=== PATIENT | female | born 1940 ===

== ENCOUNTER 2017-11-04 05:35 | Day surgery (SDC) | payer MEDICARE, MEDICAID ==
[2017-11-04] MEDS ORDERED: IV LACTATED RINGERS SOLUTION 1,000 ML BAG IV ONE (05:36)
[2017-11-04] MEDS ORDERED: EPHEDRINE SULFATE 50 MG/ML AMPUL MC ONE (05:36)
[2017-11-04] MEDS ORDERED: PROPOFOL 200 MG/20 ML BOTTLE IV ONE (05:36)
[2017-11-04] MEDS ORDERED: LIDOCAINE HCL 1% 20 ML VIAL MC ONE (05:36)
[2017-11-04 06:47] LABS: BASOPHILS % (AUTO) 0.6 % (0.0-2.0); EOSINOPHILS % (AUTO) 0.6 % (0.0-7.0); HEMATOCRIT 40.4 % (31.2-41.9); HEMOGLOBIN 13.6 g/dL (10.9-14.3); LYMPHOCYTES # (AUTO) 1.7 K/uL (20.0-40.0); MEAN CORPUSCULAR HEMOGLOBIN 28.2 uug (24.7-32.8); MEAN CORPUSCULAR HGB CONC 34 g/dL (32.3-35.6); MEAN CORPUSCULAR VOLUME 83.7 fL (75.5-95.3); MONOCYTES # (AUTO) 0.8 K/uL (2.0-10.0); MONOCYTES % (AUTO) 12.2 % (0.0-11.0); NEUTROPHILS # (AUTO) 3.8 K/uL (1.8-8.9); NEUTROPHILS % (AUTO) 59.6 % (38.5-71.5); PLATELET COUNT (AUTO) 228 K/uL (179-408); RED BLOOD CELL COUNT(AUTO) 4.83 MIL/uL (3.63-4.92); WHITE BLOOD COUNT (AUTO) 6.3 K/uL (3.8-11.8)
[2017-11-04 07:02] LABS: CARBON DIOXIDE 26 mmol/L (21-32); CHLORIDE 102 mmol/L (98-107); GLUCOSE 105 mg/dL (74-106); UREA NITROGEN, BLOOD 10 mg/dL (7-18)
[2017-11-04 07:05] LABS: *BLOOD, URINE 3+ (NEGATIVE); *CLARITY,URINE SLIGHTLY CLOUDY (CLEAR); *COLOR,URINE YELLOW (YELLOW); *KETONES,URINE TRACE (NEGATIVE); *PROTEIN,URINE 1+ (NEGATIVE); *UROBILINOGEN,URINE 0.2 E.U./dl (NORMAL); LEUKOCYTE ESTERASE ,URINE TRACE (NEGATIVE); NITRITE, URINE NEGATIVE (NEGATIVE); UGLUCOSE NEGATIVE (NEGATIVE)
[2017-11-04 07:15] LABS: *BILIRUBIN,URIN 1+ (NEGATIVE)
[2017-11-04 07:16] LABS: BACTERIA,URINE NONE SEEN /HPF (NONE SEEN); RBC,URINE 20-50 /HPF (0-3); SQUAMOUS EPITHELIAL CELL,UR FEW /HPF (NONE SEEN)
[2017-11-04 07:17] LABS: MUCUS,URINE MODERATE /LPF (0-FEW); URINE AMORPHOUS PHOSPHATES FEW /HPF
== END 2017-11-04 09:58 | disposition home or self-care (01) ==
LOC: DS 05:35
PROVIDERS: ATTEND Surgery
DX: D12.0 Benign neoplasm of cecum (principal); K22.2 Esophageal obstruction; K57.30 Diverticulosis of large intestine without perforation or abscess without bleeding; K44.9 Diaphragmatic hernia without obstruction or gangrene; K64.8 Other hemorrhoids; I11.9 Hypertensive heart disease without heart failure; Z98.890 Other specified postprocedural states; R63.4 Abnormal weight loss; K43.2 Incisional hernia without obstruction or gangrene; Z95.1 Presence of aortocoronary bypass graft; I25.10 Atherosclerotic heart disease of native coronary artery without angina pectoris; I10 Essential (primary) hypertension
CPT/HCPCS: 36415; 43235; 71010; 85025; 85730; A4217; A4663; J3490; J7120

== ENCOUNTER 2017-11-30 08:45 | Inpatient (IN) | payer MEDICARE, MEDICAID ==
[~2017-11-30] VITALS: Ht 127 cm; Wt 48.5 kg
[2017-11-30 09:47] LABS: BASOPHILS % (AUTO) 0.3 % (0.0-2.0); EOSINOPHILS # (AUTO) 0.1 K/uL (0.0-0.7); EOSINOPHILS % (AUTO) 1.2 % (0.0-7.0); HEMATOCRIT 39.4 % (31.2-41.9); HEMOGLOBIN 13.3 g/dL (10.9-14.3); LYMPHOCYTES # (AUTO) 1.7 K/uL (20.0-40.0); LYMPHOCYTES % (AUTO) 26.5 % (20.5-51.5); MEAN CORPUSCULAR HEMOGLOBIN 28.4 uug (24.7-32.8); MEAN CORPUSCULAR HGB CONC 34 g/dL (32.3-35.6); MEAN CORPUSCULAR VOLUME 84.3 fL (75.5-95.3); MONOCYTES # (AUTO) 0.6 K/uL (2.0-10.0); MONOCYTES % (AUTO) 9.7 % (0.0-11.0); NEUTROPHILS % (AUTO) 62.3 % (38.5-71.5); PLATELET COUNT (AUTO) 242 K/uL (179-408); RED BLOOD CELL COUNT(AUTO) 4.67 MIL/uL (3.63-4.92); WHITE BLOOD COUNT (AUTO) 6.3 K/uL (3.8-11.8)
[2017-11-30 09:47] LABS: *BILIRUBIN,URIN NEGATIVE (NEGATIVE); *BLOOD, URINE Trace-lysed (NEGATIVE); *CLARITY,URINE CLEAR (CLEAR); *COLOR,URINE YELLOW (YELLOW); *KETONES,URINE NEGATIVE (NEGATIVE); *PROTEIN,URINE NEGATIVE (NEGATIVE); *UROBILINOGEN,URINE 0.2 E.U./dl (NORMAL); LEUKOCYTE ESTERASE ,URINE TRACE (NEGATIVE); NITRITE, URINE NEGATIVE (NEGATIVE); UGLUCOSE NEGATIVE (NEGATIVE)
[2017-11-30 09:49] LABS: CARBON DIOXIDE 28 mmol/L (21-32); CHLORIDE 104 mmol/L (98-107); CREATININE 0.9 mg/dL (0.6-1.3); GLUCOSE 101 mg/dL (74-106); POTASSIUM 4.2 mmol/L (3.5-5.1); UREA NITROGEN, BLOOD 10 mg/dL (7-18)
[2017-11-30 09:54] LABS: BACTERIA,URINE FEW /HPF (NONE SEEN); RBC,URINE 0-3 /HPF (0-3); SQUAMOUS EPITHELIAL CELL,UR FEW /HPF (NONE SEEN); WBC,URINE 0-3 /HPF (0-3)
[2017-11-30 09:55] LABS: ALANINE AMINOTRANSFERASE 17 U/L (14-59); ALKALINE PHOSPHATASE 78 U/L (50-136); ASPARTATE AMINOTRANSFERASE 13 U/L (15-37); BILIRUBIN,TOTAL 1.3 mg/dL (0.2-1.0)
[2017-11-30] MEDS ORDERED: LEVOFLOXACIN 500 MG/D5W 500 MG in PREMIXED 1 EACH IV ONE (10:00)
[2017-11-30] MEDS ORDERED: METRONIDAZOLE 500 MG/NS 100ML 500 MG in PREMIXED 1 EACH IV ONE (10:00)
[2017-11-30] MEDS ORDERED: FENTANYL CITRATE 100 MCG/2 ML AMPUL ONE ×2 (10:37→14:19)
[2017-11-30] MEDS ORDERED: ROCURONIUM BROMIDE 50 MG/5 ML VIAL ONE (10:37)
[2017-11-30] MEDS ORDERED: BUPIVACAINE PF 0.5% 30 ML VIAL ONE (11:26)
[2017-11-30] MEDS ORDERED: LIDOCAINE HCL 1% 20 ML VIAL ONE (11:26)
[2017-11-30] MEDS ORDERED: EPINEPHRINE 1 MG/1 ML AMP ONE (11:27)
--- NOTE | 2017-11-30 15:00 | NUR ---
Patient was admitted to med/surg department. awake and alert, no evidence of distress noted, bed in low position, side rails up x2.
[2017-11-30 15:38] VITALS: BP 113/60
[2017-11-30] MEDS ORDERED: MECL-102 PO (15:44)
[2017-11-30] MEDS ORDERED: METO-357 PO (15:44)
[2017-11-30] MEDS ORDERED: QUET100T PO (15:44)
[2017-11-30] MEDS ORDERED: ZOLP10TA6 PO (15:44)
[2017-11-30] MEDS ORDERED: ALEN70TA45 PO (15:44)
[2017-11-30] MEDS ORDERED: ASPI-1152 PO (15:44)
[2017-11-30] MEDS ORDERED: VALS80TA2 PO (15:44)
[2017-11-30] MEDS ORDERED: NITR0.4T SL (15:44)
[2017-11-30] MEDS ORDERED: FLUT1DIS29 IH (15:44)
[2017-11-30] MEDS ORDERED: ROSU10TA PO (15:44)
[2017-11-30] MEDS ORDERED: CELE200C PO (15:44)
[2017-11-30] MEDS ORDERED: DIPH1TAB PO (15:44)
[2017-11-30] MEDS ORDERED: ESOM40CA PO (15:44)
[2017-11-30] MEDS ORDERED: MELO-105 PO (15:44)
[2017-11-30] MEDS ORDERED: DEXAMETHASONE SOD PHOSPHATE 4 MG INJ IV ONE (17:29)
[2017-11-30] MEDS ORDERED: SEVOFLURANE 250 ML BOTTLE IH ONE (17:29)
[2017-11-30] MEDS ORDERED: PROPOFOL 200 MG/20 ML BOTTLE IV ONE (17:29)
[2017-11-30] MEDS ORDERED: GLYCOPYRROLATE 0.2 MG/ML VIAL MC ONE (17:29)
[2017-11-30] MEDS ORDERED: LIDOCAINE HCL 1% 20 ML VIAL MC ONE (17:29)
[2017-11-30] MEDS ORDERED: EPHEDRINE SULFATE 50 MG/ML AMPUL MC ONE (17:29)
[2017-11-30] MEDS ORDERED: ONDANSETRON 4 MG/2 ML VIAL IV ONE (17:29)
[2017-11-30] MEDS ORDERED: IV LACTATED RINGERS SOLUTION 1,000 ML BAG IV ONE (17:29)
[2017-11-30] MEDS ORDERED: NEOSTIGMINE METHYLSULFATE 10 MG/10 ML VIAL IV ONE (17:29)
[2017-11-30] MEDS ORDERED: ONDANSETRON 4 MG/2 ML VIAL IV PRN ×2 (18:30→20:00)
--- NOTE | 2017-11-30 18:48 | NUR ---
Patient was seen by Dr. Holguin and is to start a clear liquid diet during breakfast. Dr. Holguin stated that the patient should take gabapentin, tylenol and ibuprofen all together to relieve pain.
[2017-11-30] MEDS: IV LACTATED RINGERS SOLUTION 1,000 ML IV PRN (18:59)
[2017-11-30] MEDS ORDERED: GABAPENTIN 300 MG CAPSULE PO PRN (19:00)
--- NOTE | 2017-11-30 19:00 | NUR ---
Received patient in bed, speak Spanish/Namibian, complain of pain at this time, abdomen with intact dressing, dressing clean and dry, miguel cath patent draining with yellow color urine in moderate amount, call light within reach.
[2017-11-30 20:00] VITALS: BP 118/69
[2017-11-30] MEDS ORDERED: FLUTICASONE/SALMETEROL 500/50 EACH DISK.W.DEV IH SCH (20:00)
[2017-11-30] MEDS ORDERED: ZOLPIDEM 5 MG TABLET PO PRN (20:00)
--- NOTE | 2017-11-30 21:00 | NUR ---
Patient awake, refusing iv antibiotics, placed a call to son and notify the family that patient refusing medications, son spoke to the patient and agreed to have iv antibiotics, son explained to patient what is the plan for her while she is here. denies pain at this time.
[2017-11-30] MEDS: METRONIDAZOLE 500 MG/NS 100ML 100 ML IV SCH (21:28)
[2017-12-01] MEDS: IV LACTATED RINGERS SOLUTION 1,000 ML IV PRN ×2 (02:43→17:14)
[2017-12-01] MEDS: HYDROMORPHONE 1 MG/1 ML DISP.SYRIN IV PRN ×3 (03:20→11:36)
[2017-12-01] MEDS: METRONIDAZOLE 500 MG/NS 100ML 100 ML IV SCH (04:44)
--- NOTE | 2017-12-01 05:49 | NUR ---
Patient awake, pain medication effective at this time, patient appears to be relaxed and resting, call light within reach. kept comfortable.
[2017-12-01] MEDS ORDERED: ALENDRONATE SODIUM 70 MG TABLET PO SCH (06:00)
[2017-12-01 06:08] VITALS: BP 120/65
[2017-12-01] MEDS: PANTOPRAZOLE SODIUM 40 MG TABLET.DR PO SCH (06:29)
--- NOTE | 2017-12-01 07:00 | NUR ---
Received report from production supervisor off shift nurse, patient in bed awake, reports of pain in abdomen. Bed in low position, side rails up x2, bed alarm on, miguel catheter draining. Pain medication will be administered.
[2017-12-01 07:05] LABS: ALANINE AMINOTRANSFERASE 15 U/L (14-59); ALKALINE PHOSPHATASE 57 U/L (50-136); ASPARTATE AMINOTRANSFERASE 16 U/L (15-37); BILIRUBIN,TOTAL 0.9 mg/dL (0.2-1.0); CARBON DIOXIDE 26 mmol/L (21-32); CHLORIDE 108 mmol/L (98-107); CHOLESTEROL 133 mg/dL (<200); CREATININE 0.8 mg/dL (0.6-1.3); GLUCOSE 156 mg/dL (74-106); HDL CHOLESTEROL 52 mg/dL (40-60); POTASSIUM 4.5 mmol/L (3.5-5.1); TOTAL PROTEIN, SERUM 5.5 g/dL (6.4-8.2); TRIGLYCERIDES 49 MG/DL (30-150); UREA NITROGEN, BLOOD 11 mg/dL (7-18)
[2017-12-01 07:07] LABS: LYMPHOCYTES # (AUTO) 0.9 K/uL (20.0-40.0); LYMPHOCYTES % (AUTO) 7.2 % (20.5-51.5); MEAN CORPUSCULAR HEMOGLOBIN 28.1 uug (24.7-32.8); MEAN CORPUSCULAR HGB CONC 34 g/dL (32.3-35.6); MEAN CORPUSCULAR VOLUME 83.5 fL (75.5-95.3); MONOCYTES # (AUTO) 0.7 K/uL (2.0-10.0); MONOCYTES % (AUTO) 5.4 % (0.0-11.0); NEUTROPHILS # (AUTO) 11.3 K/uL (1.8-8.9); NEUTROPHILS % (AUTO) 87.4 % (38.5-71.5); PLATELET COUNT (AUTO) 203 K/uL (179-408); RED BLOOD CELL COUNT(AUTO) 3.89 MIL/uL (3.63-4.92)
[2017-12-01 07:09] LABS: IRON, SERUM 16 ug/dL (50-175)
[2017-12-01 07:14] LABS: THYROID STIMULATING HORMONE 0.434 mIU/mL (0.358-3.740)
[2017-12-01 07:16] LABS: PHOSPHOROUS 3.9 mg/dL (2.5-4.9)
[2017-12-01 07:22] LABS: HEMATOCRIT 32.5 % (31.2-41.9); HEMOGLOBIN 10.9 g/dL (10.9-14.3)
[2017-12-01] MEDS ORDERED: IBUPROFEN 800 MG TABLET PO SCH (08:00)
[2017-12-01] MEDS: ASPIRIN EC 81 MG TABLET.DR PO SCH (08:55)
[2017-12-01] MEDS: VALSARTAN 80 MG TABLET PO SCH (08:55)
[2017-12-01] MEDS: GABAPENTIN 300 MG CAPSULE PO SCH ×3 (08:55→23:51)
[2017-12-01] MEDS: ACETAMINOPHEN 325 MG TABLET PO SCH ×3 (08:55→23:51)
[2017-12-01] MEDS: FLUTICASONE/VILANTEROL 1 EACH BLST.W.DEV INH SCH (08:56)
[2017-12-01] MEDS: METOPROLOL SUCCINATE XL 50 MG TAB.SR.24H PO SCH (08:56)
[2017-12-01] MEDS ORDERED: PANTOPRAZOLE SODIUM 40 MG VIAL IV SCH (09:00)
[2017-12-01] MEDS ORDERED: MECLIZINE HCL 25 MG TABLET PO PRN (09:00)
[2017-12-01 09:30] VITALS: BP 102/59
--- NOTE | 2017-12-01 10:00 | NUR ---
patient up to the bathroom ambulating with nurse assist. Orders received to d/c the miguel. Removed miguel and patient tolerated it well.
[2017-12-01 11:24] VITALS: BP 104/55
--- NOTE | 2017-12-01 12:00 | NUR ---
Patient was seen by dr. pettit. Evaluation revealed that patient is able to eat regular diet. Orders changed and new tray ordered.
[2017-12-01] MEDS ORDERED: DIPHENOXYLATE HCL/ATROP SULF TABLET PO PRN (16:00)
[2017-12-01] MEDS ORDERED: LEVOFLOXACIN 500 MG/D5W 100 ML IV ONE (16:00)
[2017-12-01 16:30] VITALS: BP 91/52
--- NOTE | 2017-12-01 18:53 | NUR ---
patient has been cooperative with care. Dr. 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 Do not mistake this with C-diff. Currently in bed, no evidence of distress noted, bed in low postion, side rails up x2.
[2017-12-01 20:00] VITALS: BP 107/57
--- NOTE | 2017-12-01 20:00 | NUR ---
nsg: pt received a/o x 4, no acute distress noted. denies discomfort. v/s stable. ambulatory with standby assist. call light within reach.
--- NOTE | 2017-12-02 05:00 | NUR ---
nsg: no acute distress noted. denies discomfort. all needs attended.
[2017-12-02 05:38] VITALS: BP 107/54
[2017-12-02] MEDS: PANTOPRAZOLE SODIUM 40 MG TABLET.DR PO SCH (05:42)
[2017-12-02 06:40] LABS: BASOPHILS % (AUTO) 0.1 % (0.0-2.0); HEMATOCRIT 27.9 % (31.2-41.9); HEMOGLOBIN 9.4 g/dL (10.9-14.3); LYMPHOCYTES # (AUTO) 1.6 K/uL (20.0-40.0); LYMPHOCYTES % (AUTO) 13.9 % (20.5-51.5); MEAN CORPUSCULAR HEMOGLOBIN 28.4 uug (24.7-32.8); MEAN CORPUSCULAR HGB CONC 34 g/dL (32.3-35.6); MEAN CORPUSCULAR VOLUME 84.5 fL (75.5-95.3); MONOCYTES # (AUTO) 0.9 K/uL (2.0-10.0); MONOCYTES % (AUTO) 7.7 % (0.0-11.0); NEUTROPHILS # (AUTO) 8.9 K/uL (1.8-8.9); NEUTROPHILS % (AUTO) 78.3 % (38.5-71.5); PLATELET COUNT (AUTO) 183 K/uL (179-408); WHITE BLOOD COUNT (AUTO) 11.3 K/uL (3.8-11.8)
[2017-12-02 07:04] LABS: ALANINE AMINOTRANSFERASE 15 U/L (14-59); ALKALINE PHOSPHATASE 51 U/L (50-136); ASPARTATE AMINOTRANSFERASE 17 U/L (15-37); BILIRUBIN,TOTAL 0.5 mg/dL (0.2-1.0); CARBON DIOXIDE 25 mmol/L (21-32); CHLORIDE 108 mmol/L (98-107); CREATININE 0.8 mg/dL (0.6-1.3); GLUCOSE 108 mg/dL (74-106); PHOSPHOROUS 2.5 mg/dL (2.5-4.9); POTASSIUM 3.9 mmol/L (3.5-5.1); UREA NITROGEN, BLOOD 11 mg/dL (7-18)
[2017-12-02] MEDS: ACETAMINOPHEN 325 MG TABLET PO SCH ×2 (08:23→16:44)
[2017-12-02] MEDS: GABAPENTIN 300 MG CAPSULE PO SCH ×2 (08:23→16:44)
[2017-12-02] MEDS: ASPIRIN EC 81 MG TABLET.DR PO SCH (08:23)
[2017-12-02] MEDS: FLUTICASONE/VILANTEROL 1 EACH BLST.W.DEV INH SCH (08:26)
[2017-12-02 08:29] VITALS: BP 124/58
[2017-12-02] MEDS: METOPROLOL SUCCINATE XL 50 MG TAB.SR.24H PO SCH (08:32)
[2017-12-02] MEDS: VALSARTAN 80 MG TABLET PO SCH (08:32)
[2017-12-02] MEDS ORDERED: LEVOFLOXACIN 250MG /D5W 50 ML IV SCH (11:00)
--- NOTE | 2017-12-02 11:30 | NUR ---
Patient visited by daughter in law.
[2017-12-02 11:45] VITALS: BP 115/53
[2017-12-02] MEDS ORDERED: SOD FERRIC GLUC COMPLX/SUCROSE 125 MG in IV NORMAL SALINE 100 ML IV SCH (14:00)
--- NOTE | 2017-12-02 16:00 | NUR ---
Reinforced dressing on right abdomen. Clay intact, no drainage/redness/bleeding noted. Will continue to monitor.
[2017-12-02 16:03] VITALS: BP 113/49
--- NOTE | 2017-12-02 18:00 | NUR ---
Patient with frequent, loose, dark brown stool noted. Assisted patient with toileting needs. Dressing on right abdomen clean/dry/intact, no drainage/bleeding noted. VS stable, afebrile, no distress, no SOB. Family at bedside. Safety measures in place, call light within reach, bed alarm on. Will continue to monitor.
[2017-12-02] MEDS: MORPHINE SULFATE 4 MG/1 ML DISP.SYRIN IV PRN (19:50)
[2017-12-02] MEDS: Z GUARD REMEDY PASTE 57 GM TUBE TOP SCH (19:53)
[2017-12-02 20:00] VITALS: BP 117/58
--- NOTE | 2017-12-02 20:03 | NUR ---
Awake & alert, no SOB denies chest pain. Still c/o incision site pain 8/10 pain level. Assisted to the bathroom patient voided & released small loose brown stool. Afebrile. Medicated w/ Morphine sulfate 4mg IVP for pain. Complete bed linen change done. Kept comfortable. Will continue to monitor.
--- NOTE | 2017-12-02 21:30 | NUR ---
Resting comfortably. No signs of distress.
[2017-12-03] MEDS: GABAPENTIN 300 MG CAPSULE PO SCH ×3 (00:15→16:37)
[2017-12-03] MEDS: ACETAMINOPHEN 325 MG TABLET PO SCH ×3 (00:15→16:37)
[2017-12-03] MEDS: MORPHINE SULFATE 4 MG/1 ML DISP.SYRIN IV PRN (02:17)
--- NOTE | 2017-12-03 02:20 | NUR ---
Awake requesting her pain medication & slightly nauseated. Assisted to the bathroom, patient voided but no diarrhea noted. Medicated for pain, Zofran 4mg IVP adm. Kept comfortable.
[2017-12-03] MEDS: PANTOPRAZOLE SODIUM 40 MG TABLET.DR PO SCH (05:19)
[2017-12-03 06:20] LABS: CARBON DIOXIDE 27 mmol/L (21-32); CHLORIDE 114 mmol/L (98-107); CREATININE 0.7 mg/dL (0.6-1.3); GLUCOSE 86 mg/dL (74-106); POTASSIUM 3.8 mmol/L (3.5-5.1); UREA NITROGEN, BLOOD 10 mg/dL (7-18)
[2017-12-03 06:41] VITALS: BP 99/45
[2017-12-03 06:42] LABS: HEMOGLOBIN 9.7 g/dL (10.9-14.3); MONOCYTES # (AUTO) 0.7 K/uL (2.0-10.0)
[2017-12-03 06:54] LABS: BASOPHILS % (AUTO) 0.1 % (0.0-2.0); EOSINOPHILS % (AUTO) 0.5 % (0.0-7.0); HEMATOCRIT 29.1 % (31.2-41.9); LYMPHOCYTES # (AUTO) 1.9 K/uL (20.0-40.0); LYMPHOCYTES % (AUTO) 22.1 % (20.5-51.5); MEAN CORPUSCULAR HEMOGLOBIN 28.4 uug (24.7-32.8); MEAN CORPUSCULAR HGB CONC 34 g/dL (32.3-35.6); MEAN CORPUSCULAR VOLUME 84.8 fL (75.5-95.3); MONOCYTES % (AUTO) 8.6 % (0.0-11.0); NEUTROPHILS # (AUTO) 5.8 K/uL (1.8-8.9); NEUTROPHILS % (AUTO) 68.7 % (38.5-71.5); PLATELET COUNT (AUTO) 178 K/uL (179-408); RED BLOOD CELL COUNT(AUTO) 3.43 MIL/uL (3.63-4.92)
[2017-12-03 06:56] LABS: WHITE BLOOD COUNT (AUTO) 8.4 K/uL (3.8-11.8)
[2017-12-03 07:44] VITALS: BP 96/50
[2017-12-03] MEDS: ASPIRIN EC 81 MG TABLET.DR PO SCH (08:23)
[2017-12-03] MEDS: VALSARTAN 80 MG TABLET PO SCH ×2 (08:23→15:00)
[2017-12-03] MEDS: FLUTICASONE/VILANTEROL 1 EACH BLST.W.DEV INH SCH (08:23)
[2017-12-03] MEDS: METOPROLOL SUCCINATE XL 50 MG TAB.SR.24H PO SCH ×2 (08:24→15:00)
[2017-12-03] MEDS: Z GUARD REMEDY PASTE 57 GM TUBE TOP SCH (08:25)
[2017-12-03 11:15] VITALS: BP 123/59
--- NOTE | 2017-12-03 15:00 | NUR ---
Patient noted to have elevated BP 163/61 HR 95. Administered daily BP medication (unscheduled) that was not administered this morning 0900. Will continue to monitor.
[2017-12-03 15:28] VITALS: BP 163/61
[2017-12-03 16:36] VITALS: BP 141/63
--- NOTE | 2017-12-03 17:30 | NUR ---
Patient discharged to home, accompanied by sister in law [place]. Patient left the med surg unit via wheelchair assisted by WRIST LINER. Patient is alert, in no distress. IV removed, Id wrist band removed, belonging list done, patient's own meds returned to patient. Discharged papers signed by patient and copy provided. Discharged teachings provided to patient/family, patient/family verbalized understanding.
== END 2017-12-03 17:30 | disposition home health service (06) | DRG 330 ==
LOC: DS 08:45 → MED 14:17
PROVIDERS: ADMIT Internal Medicine; ATTEND Surgery
DX: K50.00 Crohn's disease of small intestine without complications (principal); D68.59 Other primary thrombophilia; K92.2 Gastrointestinal hemorrhage, unspecified; J98.11 Atelectasis; D12.0 Benign neoplasm of cecum; I11.9 Hypertensive heart disease without heart failure; J44.9 Chronic obstructive pulmonary disease, unspecified; F03.90 Unspecified dementia, unspecified severity, without behavioral disturbance, psychotic disturbance, mood disturbance, and anxiety; K66.0 Peritoneal adhesions (postprocedural) (postinfection); Z95.3 Presence of xenogenic heart valve; M19.90 Unspecified osteoarthritis, unspecified site; G47.00 Insomnia, unspecified; F41.9 Anxiety disorder, unspecified; E78.5 Hyperlipidemia, unspecified; D50.9 Iron deficiency anemia, unspecified; K21.9 Gastro-esophageal reflux disease without esophagitis; T39.395A Adverse effect of other nonsteroidal anti-inflammatory drugs [NSAID], initial encounter; Y92.009 Unspecified place in unspecified non-institutional (private) residence as the place of occurrence of the external cause; I70.0 Atherosclerosis of aorta
CPT/HCPCS: 36415; 71045; 83550; 83735; 84100; 84443; 85025; 85730; A4649; A4663; J0171; J1100; J1170; J1956; J2270; J2405; J2710; J2916; J3010; J3490; J7050; J7120